=== PATIENT | male | born 1955 | race Caucasian/White ===

== ENCOUNTER 2017-10-14 02:51 | Emergency (ER) | payer MEDICAID, OTHER ==
[~2017-10-14] VITALS: Ht 185.4 cm; Wt 117.9 kg
[2017-10-14 06:14] VITALS: BP 130/69
[2017-10-14] MEDS ORDERED: BACITRACIN TOP OINT 1 UD PKG TOP ONE (07:15)
== END 2017-10-14 07:46 | disposition home or self-care (01) ==
LOC: EDBD 02:51 → ER 02:51
DX: S51.811A Laceration without foreign body of right forearm, initial encounter (principal); S93.401A Sprain of unspecified ligament of right ankle, initial encounter; S20.219A Contusion of unspecified front wall of thorax, initial encounter; I10 Essential (primary) hypertension; E11.9 Type 2 diabetes mellitus without complications; R42 Dizziness and giddiness; V43.52XA Car driver injured in collision with other type car in traffic accident, initial encounter; Y93.89 Activity, other specified; Y92.89 Other specified places as the place of occurrence of the external cause; Y99.8 Other external cause status
CPT/HCPCS: 70450; 71045; 72125; 73090; 73100; 73610